=== PATIENT | female | born 1950 | race Caucasian/White ===

== ENCOUNTER → 2016-10-08 | Outpatient (CLI) | payer OTHER ==
--- NOTE | 2016-10-08 16:46 | MA ---
Screening Digital Mammogram With Tomosynthesis Clinical Indications: Routine screening. Technique: Standard digital cephalocaudal and tomosynthesis mediolateral oblique projections are obt ained. The digital images were processed by the [employer] computer aided detection system. Comparison: August 2015, June 2010 and July 2009 Breast density: B; There are scattered fibroglandular densities. Findings: CAD was reviewed. No suspicious findings are identified. Impression: Negative mammogram. BI-RADS 1. Recommendation: Routine screening is recommended in one year. [facility] will send a result letter to the patient. Negative mammography should not preclude additional workup of a clinically suspicious finding. The patient's information is entered into a reminder system with a target due date for her next mammo gram.
== END ==
LOC: FIMAGING 15:15
DX: Z12.31 Encounter for screening mammogram for malignant neoplasm of breast (principal)
CPT/HCPCS: G0202

== ENCOUNTER → 2017-09-15 | Outpatient (CLI) | payer OTHER | LOC: CIMAGING 09:46 | PROVIDERS: ATTEND Family Medicine | DX: M47.892 Other spondylosis, cervical region (principal); M79.671 Pain in right foot; R20.2 Paresthesia of skin | CPT/HCPCS: 72040-PO ==

== ENCOUNTER → 2017-10-09 | Outpatient (CLI) | payer OTHER | LOC: FIMAGING 10:05 | PROVIDERS: ATTEND Family Medicine | DX: Z12.31 Encounter for screening mammogram for malignant neoplasm of breast (principal); Z80.3 Family history of malignant neoplasm of breast ==

== ENCOUNTER → 2017-11-16 | Outpatient (CLI) | payer OTHER ==
[~2017-11-16] MED LIST: IOPAMIDOL (ISOVUE-300) 100 ML BTL ONE
== END ==
LOC: CIMAGING 10:24
PROVIDERS: ATTEND Family Medicine
DX: N20.0 Calculus of kidney (principal)
CPT/HCPCS: 74178; Q9967; 82565-PO

== ENCOUNTER → 2017-12-30 | Outpatient (CLI) | payer OTHER | LOC: FIMAGING 09:37 | PROVIDERS: ATTEND Family Medicine | DX: Z13.820 Encounter for screening for osteoporosis (principal); M81.0 Age-related osteoporosis without current pathological fracture; E03.9 Hypothyroidism, unspecified; E78.5 Hyperlipidemia, unspecified; I10 Essential (primary) hypertension; Z78.0 Asymptomatic menopausal state; Z79.899 Other long term (current) drug therapy ==

== ENCOUNTER 2018-03-15 14:07 | Day surgery (SDC) | payer OTHER ==
[2018-03-15] MEDS ORDERED: fentaNYL 100 MCG/2 ML INJ IVP PRN (15:06)
[2018-03-15] MEDS ORDERED: ONDANSETRON 4 MG/2 ML VIAL IVP PRN (15:06)
[2018-03-15] MEDS ORDERED: NALOXONE HCL 0.4 MG/ML INJ IVP PRN (15:06)
--- NOTE | 2018-03-15 15:07 | PDANEPAE ---
ANE History of Present Illness EGD + EUS, Colonoscopy ANE Past Medical History - Cardiovascular History Hx Hypertension: Yes Hx Arrhythmias: No Hx Chest Pain: No Hx Coronary Artery / Peripheral Vascular Disease: No Hx CHF / Valvular Disease: No Hx Palpitations: No - Pulmonary History Hx COPD: No Hx Asthma/Reactive Airway Disease: No Hx Recent Upper Respiratory Infection: No Hx Oxygen in Use at Home: No Hx Sleep Apnea: No Sleep Apnea Screening Result - Last Documented: Positive - Neurologic History Hx Cerebrovascular Accident: No Hx Seizures: No Hx Dementia: No - Endocrine History Hx Diabetes: No Endocrine History Comment: HYPOTHYROID - Renal History Hx Renal Disorders: Yes Renal History Comment: BLOOD IN URINE EARLIER THIS YEAR NO FOLLOW UP DONE - Liver History Hx Hepatic Disorders: No - Neurological & Psychiatric Hx Hx Neurological and Psychiatric Disorders: No - Cancer History Hx Cancer: No - Congenital Disorder History Hx Congenital Disorders: No - GI History Hx Gastrointestinal Disorders: Yes Gastrointestinal History Comment: RECTAL BLEEDING. HEMORRHOIDS. DIVERTICULOSIS - Other Health History Other Health History: CHRONIC SINUS. OSTEOARTHRITIS KNEE'S AND FEET - Chronic Pain History Chronic Pain: Yes (KNEE'S AND FEET) - Surgical History Prior Surgeries: RT HAND ORIF 05/2017. KATHARINE CATARACTS. MARISSA. COLONOSCOPY. C- SECTION. DEVIATED SEPTUM ANE Review of Systems Review of Systems: - Exercise capacity METS (RN): 4 METS ANE Patient History - Allergies Allergies/Adverse Reactions: No Known Allergies Allergy (Unverified 09/04/11 11:02) - Home Medications Home Medications: Aspirin 81mg (*) DAILY 03/05/18 [Last Taken Unknown] Herbals/Supplements -Info Only DAILY 03/05/18 [Last Taken Unknown] Levothyroxine DAILY 03/05/18 [Last Taken Unknown] Lisinopril DAILY 03/05/18 [Last Taken Unknown] Pravastatin Sodium DAILY 03/05/18 [Last Taken Unknown] - NPO status NPO Since - Liquids (Date): 03/15/18 NPO Since - Liquids (Time): 11:30 NPO Since - Solids (Date): 03/14/18 NPO Since - Solids (Time): 09:30 - Smoking Hx Smoking Status: Never smoked ANE Labs/Vital Signs - Vital Signs Blood Pressure: 147/75 Heart Rate: 74 Respiratory Rate: 18 O2 Sat (%): 94 Height: 162.56 cm Weight: 81.647 kg ANE Physical Exam - Airway Neck exam: FROM Mallampati Score: Class 2 Mouth exam: normal dental/mouth exam - Pulmonary Pulmonary: clear to auscultation - Cardiovascular Cardiovascular: regular rate and rhythym - ASA Status ASA Status: II ANE Anesthesia Plan Anesthesia Plan: GA with mask
[2018-03-15] MEDS ORDERED: PROPOFOL/EMULSION 500 MG/50 ML BOTTLE IV ONE (15:08)
[2018-03-15] MEDS ORDERED: LIDOCAINE 2% 5 ML SDV ONE (15:11)
[2018-03-15] MEDS ORDERED: INDOMETHACIN 50 MG SUPP PR PRN (15:16)
--- NOTE | 2018-03-15 15:17 | PDGENHP ---
History & Physical Chief Complaint: abnormal imaging, screening History of Present Illness: 67 year old female presents for evaluation of abnormal imaging and screening Pertinent Past, Social, Family History: pMhx: HTN, hypothyroid Relevant Physical Exam: HEENT: anicteric. CV: RRR +S1S2. lUNGS: ctab. aBD: SOFT, NT, + BS Cardiorespiratory Assessment: asa 2
[2018-03-15] MEDS ORDERED: NS 500 ML IV SCH (15:30)
[2018-03-15] MEDS ORDERED: PROPOFOL 200 MG/20 ML VIAL ONE ×2 (15:50→16:14)
--- NOTE | 2018-03-15 16:29 | GIREPORT ---
[facility] Surgical Services - Endoscopy Department Patient Name: Kalee Smith Procedure Date: 03/15/2018 1:39 PM Patient Type: Outpatient Attending MD/ ER Physician: Bakari Leyva MD Procedure: Colonoscopy Indications: Screening for colorectal malignant neoplasm Patient Profile: 67 year old female presents for screening colonoscopy. Providers: Bakari Leyva MD Medicines: Monitored Anesthesia Care Complications: No immediate complications. Estimated blood loss: Minimal. Description of Procedure: After obtaining informed consent, the scope was passed under direct vis ion. Throughout the procedure, the patient's blood pressure, pulse, and oxyg en saturations were monitored continuously. The Colonoscope with irrigatio n channel was introduced through the anus and advanced to the cecum, identified by appendiceal orifice and ileocecal valve. The colonoscopy was performed without difficulty. The patient tolerated the procedure well. The quality of the bowel preparation was adequate to identify polyps. The ileocecal valve, appendiceal orifice, and rectum were photographed. Findings: The perianal and digital rectal examinations were normal. Pertinent negatives include no palpable rectal lesions. Multiple small and large-mouthed diverticula were found in the sigmoid colon and descending colon. Three sessile polyps were found in the sigmoid colon, descending colon and cecum. The polyps were 2 to 3 mm in size. These polyps were removed wit h a cold biopsy forceps. Resection and retrieval were complete. A 5 mm polyp was found in the sigmoid colon. The polyp was sessile. The polyp was removed with a cold biopsy forceps. Resection and retrieval w ere complete. Estimated Blood Loss: Estimated blood loss was minimal. Post Op Diagnosis: - Diverticulosis in the sigmoid colon and in the descending colon. - Three 2 to 3 mm polyps in the sigmoid colon, in the descending colon and in the cecum, removed with a cold biopsy forceps. Resected and retrieve d. - One 5 mm polyp in the sigmoid colon, removed with a cold biopsy force ps. Resected and retrieved. Recommendation: - Discharge patient to home (with escort). - Resume previous diet. - Continue present medications. - Repeat colonoscopy in 3 - 5 years for surveillance based on pathology results (3 years if 3 or more adenomas, 5 years if 1-2 adenomas, 10 yea rs otherwise). - Use fiber, for example Citrucel, Fibercon, Konsyl or Metamucil. - Await pathology results. Attending Participation: I personally performed the entire procedure. Bakari Leyva MD Bakari Leyva MD 03/15/2018 4:29:36 PM This report has been signed electronicallyBakari Leyva MD Number of Addenda: 0 Note Initiated On: 03/15/2018 1:39 PM Total Procedure Duration Time 0 hours 28 minutes 56 seconds [email or web address]
--- NOTE | 2018-03-15 16:33 | POSTANESTH ---
Post Anesthetic Evaluation Cardiovascular Status: Normal, Stable Respiratory Status: Normal, Stable Level of Consciousness/Mental Status: Can Participate in Eval, Alert and Oriented Pain Control: Adequate, Prn Tx Ordered Nausea/Vomiting Control: Adequate, Prn Tx Ordered Complications Possibly Related to Anesthesia: None Noted
[2018-03-15 17:35] VITALS: BP 149/79
--- NOTE | 2018-03-16 22:32 | GIREPORT ---
[facility] - Endoscopy Department Patient Name: Kalee Smith Procedure Date: 03/15/2018 1:39 PM Patient Type: Outpatient Attending MD/ ER Physician: Bakari Leyva MD Procedure: Upper EUS Indications: Cyst seen on CT scan, Dysphagia Patient Profile: 67 year old female presents for evaluation of dysphagia/abnormal imagin g. Providers: Bakari Leyva MD Medicines: Monitored Anesthesia Care Complications: No immediate complications. Estimated blood loss: Minimal. Description of Procedure: After obtaining informed consent, the endoscope was passed under direct vision. Throughout the procedure, the patient's blood pressure, pulse, and oxygen saturations were monitored continuously. The Endosonoscope was introduced through the mouth, and advanced to the second part of duoden um. The Endoscope was introduced through the mouth, and advanced to the sec ond part of duodenum. The upper EUS was accomplished without difficulty. Th e esophagus, stomach, and duodenum were visualized endosonographically. T he patient tolerated the procedure well. Findings: Endoscopic Finding : LA Grade A (one or more mucosal breaks less than 5 mm, not extending be tween tops of 2 mucosal folds) esophagitis was found at the gastroesophageal junction. Biopsies were taken with a cold forceps for histology. One benign-appearing, intrinsic stenosis was found at the gastroesophag eal junction. This stenosis was mild. The stenosis was traversed. A TTS dil ator was passed through the scope. Dilation with a 15-16.5-18 mm x 5.5 cm CR E balloon dilator was performed to 18 mm. There was subtle extrinsic compression at the distal esophagus. A large hiatal hernia was present. Patchy mildly erythematous mucosa was found in the gastric body and in the gastric antrum. Biopsies were taken with a cold forceps for histology. The examined duodenum was normal. Biopsies were taken with a cold forceps in the middle third of the esop hagus for histology. Endosonographic Finding : A round intramural (subepithelial) lesion was found in the lower third of the esophagus. The lesion was anechoic/hypoechoic. It did appear be cys tic with significant debris. The endosonographic borders were well-defined. It did appear to arise from the submucosa layer. Pancreatic parenchymal abnormalities were noted in the entire pancreas. These consisted of hyperechoic foci. There was no sign of significant endosonographic abnormality in the com mon bile duct. No lymphadenopathy seen. Estimated Blood Loss: Estimated blood loss was minimal. Post Op Diagnosis: - LA Grade A reflux esophagitis. Rule out Hodges's esophagus. Biopsied . - Benign-appearing esophageal stenosis. Dilated. - Hiatal hernia. - Erythematous mucosa in the gastric body and antrum. Biopsied. - Normal examined duodenum. - An intramural (subepithelial) lesion was found in the lower third of the esophagus. Tissue has not been obtained. 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 - Pancreatic parenchymal abnormalities consisting of hyperechoic foci w ere noted in the entire pancreas. - There was no sign of significant pathology in the common bile duct. - Biopsies were taken with a cold forceps for histology in the middle t hird of the esophagus. 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 Unsure of cause of dysphagia- Cys t versus GERD? Will start trial of PPi. Recommendation: - Perform a colonoscopy today. - Await path results. - Follow an antireflux regimen. - Use a proton pump inhibitor PO daily. - CT scan in 9 months. - Thank you for allowing me to participate in the care of your patient. Attending Participation: I personally performed the entire procedure. Bakari Leyva MD Bakari Leyva MD 03/16/2018 10:21:00 PM This report has been signed electronicallyBakari Leyva MD Number of Addenda: 0 Note Initiated On: 03/15/2018 1:39 PM [email or web address]
== END 2018-03-15 17:55 | disposition home or self-care (01) ==
LOC: FSGY 14:07
PROVIDERS: ATTEND Internal Medicine Gastroenterology
PROC: 0DBE8ZX Excision of Large Intestine, Via Natural or Artificial Opening Endoscopic, Diagnostic (ICD-10-PCS; principal; 2018-03-15 15:30)
PROC: 0DB48ZX Excision of Esophagogastric Junction, Via Natural or Artificial Opening Endoscopic, Diagnostic (ICD-10-PCS; principal; 2018-03-15 15:30)
DX: Z12.11 Encounter for screening for malignant neoplasm of colon (principal); K62.5 Hemorrhage of anus and rectum; K57.30 Diverticulosis of large intestine without perforation or abscess without bleeding; K29.71 Gastritis, unspecified, with bleeding; D12.0 Benign neoplasm of cecum; D12.5 Benign neoplasm of sigmoid colon; I10 Essential (primary) hypertension; E03.9 Hypothyroidism, unspecified
CPT/HCPCS: 43232; 45380; C1726; J2704

== ENCOUNTER → 2018-11-10 | Outpatient (CLI) | payer OTHER | LOC: FIMAGING 09:15 | PROVIDERS: ATTEND Family Medicine | DX: Z12.31 Encounter for screening mammogram for malignant neoplasm of breast (principal); Z80.3 Family history of malignant neoplasm of breast ==

== ENCOUNTER → 2018-12-06 | Outpatient (CLI) | payer OTHER | LOC: CIMAGING 13:15 | PROVIDERS: ATTEND Internal Medicine Gastroenterology | DX: K22.8 Other specified diseases of esophagus (principal); J84.10 Pulmonary fibrosis, unspecified; M47.894 Other spondylosis, thoracic region | CPT/HCPCS: 71260; Q9967 ==